=== PATIENT | female | born 1965 | race African-American/Black ===

== ENCOUNTER 2022-06-28 18:06 | Emergency (ER) | payer BC ==
[2022-06-28 18:40] VITALS: BP 110/80; PULSE 99; RESP 18; TEMP 98.6; BMI 45.3
[2022-06-28] MEDS ORDERED: predniSONE 20 MG TABLET (UD) PO ONE (19:22)
[2022-06-28] MEDS ORDERED: ALBUTEROL SO4 2.5/IPRATROPIUM 0.5 INH SOL 3 ML VIAL.NEB. NEB ONE (19:26)
[2022-06-28] MEDS ORDERED: predniSONE 20 MG TABLET (UD) ONE (19:27)
[2022-06-28] MEDS: ALBUTEROL SO4 2.5/IPRATROPIUM 0.5 INH SOL 3 ML VIAL.NEB. NEB SCH (19:31)
== END 2022-06-28 21:37 | disposition home or self-care (01) ==
LOC: JER 18:06 → JERFT 18:06
PROC: 3E0F7GC Introduction of Other Therapeutic Substance into Respiratory Tract, Via Natural or Artificial Opening (ICD-10-PCS; principal; 2022-06-28)
DX: J45.41 Moderate persistent asthma with (acute) exacerbation (principal); J06.9 Acute upper respiratory infection, unspecified
CPT/HCPCS: 99283-25